=== PATIENT | male | born 1975 | race Caucasian/White ===

== ENCOUNTER 2020-11-10 10:14 | Outpatient (NON) | payer BC, SELFPAY ==
[2020-11-10 22:00] LABS: SARS-CoV-2 RNA PCR Positive
== END 2020-11-10 10:15 ==
PROVIDERS: Visit Provider Physician Assistant
DX: U07.1 COVID-19 (principal)
CPT/HCPCS: 87635; C9803; U0003

== ENCOUNTER 2021-02-06 13:47 | Outpatient (CLI) | payer BC, SELFPAY ==
--- NOTE | ~2021-02-06 | US_ITS ---
US axilla LT INDICATION: Palpable left axillary mass TECHNIQUE: Dedicated left axillary ultrasound COMPARISON: No prior studies for comparison. FINDINGS: In the area of palpable concern in the left axilla there is an enlarged lymph node measuring 4.5 x 2. 6 x 1.1 cm. There is normal fatty hilum with thin cortex. IMPRESSION: 1: Left axillary lymph node enlargement, likely reactive. Recommend follow-up ultrasound as clinicall y warranted. Reviewed, dictated and finalized at location A. IMPRESSION: 1: Left axillary lymph node enlargement, likely reactive. Recommend follow-up u ltrasound as clinically warranted.
== END 2021-02-06 13:48 | disposition home or self-care (01) ==
PROVIDERS: PCP Family Medicine; Visit Provider Family Medicine
DX: R59.0 Localized enlarged lymph nodes (principal)
CPT/HCPCS: 76882

== ENCOUNTER 2021-03-02 13:32 | Outpatient (CLI) | payer BC, SELFPAY ==
--- NOTE | ~2021-03-02 | US_ITS ---
US axilla BI 03/02/2021 14:02 Indication: Follow-up left axillary lymph nodes. Procedure: Probable bilateral axillary lumps. Comparison: Ultrasound dated 02/06/2021 Findings: Right axilla: There is an enlarged right axillary lymph node measuring 2.7 x 2.1 x 1 cm with normal f atty hilum and internal vascularity. Left axilla: Slightly decreased size of enlarged left axillary lymph node compared with prior study n ow measuring 4 x 3.2 x 1.2 cm compared with 4.5 x 2.6 x 1.1 cm on prior examination. There is normal retention of fatty hilum. Impression: 1: Bilateral axillary lymphadenopathy, in the absence of known malignancy, likely benign. Consider 6 month follow-up. If there is history of malignancy or lymphoma, correlation with ultrasound-guided bi opsy recommended. Reviewed, dictated and finalized at location A. Impression: 1: Bilateral axillary lymphadenopathy, in the absence of known malignancy, like ly benign. Consider 6 month follow-up. If there is history of malignancy or lym phoma, correlation with ultrasound-guided biopsy recommended.
== END 2021-03-02 13:33 | disposition home or self-care (01) ==
PROVIDERS: PCP Family Medicine; Visit Provider Family Medicine
DX: R59.0 Localized enlarged lymph nodes (principal)
CPT/HCPCS: 76882

== ENCOUNTER 2021-03-21 08:39 | Outpatient (CLI) | payer BC, SELFPAY ==
--- NOTE | 2021-03-21 | ECG_ITS ---
Measurements Intervals [place] Rate: 70 P: 9 RI: 126 QRS: 12 QRSD: 86 T: 45 QT: 384 QTc: 416 Interpretive Statements SINUS RHYTHM BASELINE ARTIFACT- I, III, AVF NORMAL ECG Electronically Signed On 03-21-2021 9:07:18 CDT by Justin Alonzo D.O.
[2021-03-21 09:05] LABS: Anion Gap 4 mmol/L (8-16); Blood Urea Nitrogen 15 mg/dL (9-20); Calcium 8.7 mg/dL (8.4-10.2); Carbon Dioxide 29 mmol/L (22-30); Chloride 105 mmol/L (98-107); Estimated Glomerular Filt Rate > 60; Glucose 223 mg/dL (75-110); Potassium 4.3 mmol/L (3.4-5.0); Sodium 138 mmol/L (137-145)
== END 2021-03-21 08:40 | disposition home or self-care (01) ==
PROVIDERS: PCP Family Medicine; Visit Provider Anesthesiology
DX: E11.65 Type 2 diabetes mellitus with hyperglycemia (principal)
CPT/HCPCS: 36415; 80048; 93005

== ENCOUNTER → 2021-03-24 02:03 | Outpatient (CLI) | payer BC, SELFPAY ==
[2021-03-24 19:24] LABS: SARS-CoV-2 RNA PCR Negative
== END ==
PROVIDERS: PCP Family Medicine; Visit Provider Surgery
DX: Z01.812 Encounter for preprocedural laboratory examination (principal); Z20.822 Contact with and (suspected) exposure to COVID-19
CPT/HCPCS: C9803; U0003; U0005

== ENCOUNTER 2021-03-27 02:27 | Day surgery (SDC) | payer BC, SELFPAY ==
[2021-03-16 15:14] VITALS: BMI 30.4
--- NOTE | 2021-03-26 09:43 | WPDANESEPPF ---
Anes - Initial Pre Proc Eval Procedure: Operation Date: 03/27/21 13:00 Proposed Procedures p Excisional Biopsy Of Left Axillary Lymph Node - Juan Chaidez DO Date/Time: 03/26/21 09:43 Surgeon: Juan Chaidez DO Pre Op Diagnosis: Left Lymph Node Axillary Mass Patient Data Age: 45 Gender: M Height: 1.8 m Weight: 99.09 kg Allergies Allergy/AdvReac Type Severity Reaction Status Date / Time No Known Allergies Allergy Verified 03/27/21 11:03 Home Medications Medication Instructions Recorded Confirmed Type atorvastatin 20 mg tablet 20 mg PO DAILY 03/06/21 03/27/21 History icosapent ethyl 1 gram capsule 2 g PO BID 03/06/21 03/27/21 History lisinopril 20 mg tablet 20 mg PO DAILY 03/06/21 03/27/21 History metformin 500 mg tablet 1,000 mg PO BID 03/06/21 03/27/21 History semaglutide 1 mg/dose (2 mg/1.5 1 mg SUBCUT WEEKLY 84 Days #9 ml 03/24/21 Rx mL) subcutaneous pen injector Patient hx anesthesia problems: none Family hx anesthesia problems: none PMFSH Past Medical History Medical History (Updated 03/27/21 @ 12:16 by Cain Dunbar DO) Cancer his colon cancer - 2001 Diabetes mellitus HTN (hypertension) Hyperlipidemia CM (obstructive sleep apnea) Surgical History Surgical History Hx of appendectomy Family History Family History Mother Past heart attack Hypertension Diabetes mellitus Father Hypertension Suicide Depression Grandparent Diabetes mellitus Kidney disease Other Lung cancer Other Hepatic disease Hepatitis Social History Social History Smoking status: Never smoker Alcohol intake: current Drinks per week: 6 Alcohol use details: 6 on weelends Substance use: unknown Substance use type: does not use Living arrangements: with family 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 Gender identity (if verbalized by the patient): Male Spiritual care concerns: No Anes - Eval Final PreProcedure Day of Procedure 03/26/21 09:43 Patient weight: obese Heart: regular rate and rhythm Lungs: clear to auscultation and normal air movement Airway: Mallampati scale class II Neurological: alert and oriented Last oral intake: >/= 8 hours ASA classification: III Emergent: no Anesthetic plan: proceed Anesthesia type and monitoring: general GIVS and standard monitoring Informed Consent: The patient's anesthetic plan and its attendant risks and benefits were discussed with the patient/family/POA. Questions were solicited and answers provided to the satisfaction of the patient/family/POA.
[2021-03-27 11:15] VITALS: BMI 29.4
[2021-03-27 11:16] VITALS: BP 164/103; PULSE 86; RESP 18; TEMP 36.7; O2SAT 99
[2021-03-27] MEDS: LACTATED RINGERS 1,000 ML 30 ML IV CONT (11:40)
[2021-03-27 11:44] LABS: Glucose Point of Care 140 (65-105)
--- NOTE | 2021-03-27 12:54 | WPDHPUPDATE1 ---
History and Physical Update Update Date/Time: 03/27/21 12:54 History and Physical has been reviewed, including an updated exam of the patient. There are NO changes in the patient's condition. Risks, benefits, and alternatives have been discussed and questions answered. Patient agrees to proceed with procedure.
[2021-03-27] MEDS: ceFAZolin 2 GM/D5W 50 ML 2 GM/50 ML BAG IVPB (13:07)
[2021-03-27] MEDS: LIDO 1%/EPINEPHRINE 1:100,000 50 ML VIAL 30 ML INFILTRATE (13:22)
[2021-03-27 13:44] VITALS: BP 129/81; PULSE 83; RESP 16; O2SAT 96
--- NOTE | 2021-03-27 13:47 | P.OP_ITS ---
Procedure Note - Detailed Date of procedure: 03/27/21 Pre-op diagnosis: Left axillary lymphadenopathy Post-op diagnosis: same Procedure performed: Excisional biopsy of deep left axillary lymph node Description of procedure: * Procedure as well as risks benefits and alternatives were discussed with the patient. Written consent was obtained and placed in chart prior to procedure. Patient was brought back to surgical suite. He was placed in supine position on the operating table. IV sedation was then administered by the anesthesia department. His left axillary region was prepped and draped in sterile fashion using chlorhexidine prep. Time-out was done to confirm patient and procedure. 1% lidocaine with epinephrine was infiltrated locally directly over the left axillary mass. A 4 cm incision was made directly over this area using a 15 blade scalpel. Electrocautery was used for hemostasis and for dissection down through the subcutaneous tissue. The clavipectoral fascia was then incised using electrocautery. The deeper axillary contents were then carefully inspected and the enlarged lymph node was identified. The lymph node was carefully freed up from the surrounding subcutaneous attachments using electrocautery. The blood supply to the lymph node was ligated using a 3 0 Vicryl [id number] suture. The remaining subcu attachments were then carefully freed up with electrocautery. The specimen was removed completely and sent to the lab for pathology. The wound bed was then inspected and hemostasis appeared adequate. No other abnormalities were noted. The clavipectoral fascia was then reapproximated using 3 0 Vicryl simple interrupted sutures. The skin was then approximated using 4 0 Monocryl running subcuticular suture. Exofin glue was applied on top. The patient was then awakened from anesthesia and transferred to recovery. Anesthesia: MAC and local (1% lidocaine with epinephrine) Surgeon: Juan Chaidez DO Estimated blood loss (mL): 5 Pathology: yes (Left axillary lymph node) Complications: No immediate complications Condition: stable Disposition: same day Findings: This is a 45-year-old man who presented with a palpable mass in his left axillary region. This had been present for more than 1 wound. He originally had an ultrasound the left axilla and breast region. A 4 cm lymph node was identified within the axilla. A follow-up ultrasound showed that the lymph node had slightly increased in size. Discussions were made with the patient about treatment options and decision was made to proceed with excisional biopsy of left axillary lymph node. Excisional biopsy of the deep left axillary lymph node was performed. A 4 cm a large lymph node was identified within this region, but no other significant a bnormalities were noted. The lymph node did appear slightly pigmented which may be related to his previous tattoo on his left shoulder. No other abnormalities were noted. The lymph node was excised intact and sent to the lab for pathology.
[2021-03-27 14:10] VITALS: BP 141/82; PULSE 70; RESP 16; O2SAT 98
[2021-03-27 14:20] LABS: Glucose Point of Care 139 (65-105)
[2021-03-27 14:40] VITALS: BP 137/88; PULSE 64; RESP 16
== END 2021-03-27 14:47 | disposition home or self-care (01) ==
PROVIDERS: PCP Family Medicine; Visit Provider Surgery
PROC: (CPT 38525; principal; 2021-03-27 13:00)
DX: R59.0 Localized enlarged lymph nodes (principal); Z79.84 Long term (current) use of oral hypoglycemic drugs; G47.33 Obstructive sleep apnea (adult) (pediatric); E11.9 Type 2 diabetes mellitus without complications; E78.5 Hyperlipidemia, unspecified; Z85.038 Personal history of other malignant neoplasm of large intestine; E66.9 Obesity, unspecified; Z68.29 Body mass index [BMI] 29.0-29.9, adult; I10 Essential (primary) hypertension
CPT/HCPCS: 38525; 82948; 88184; 88305; 88333; A9270; C9803; J0690; J2250; J2405; J2704; J3010; J7120; U0003; U0005

== ENCOUNTER → 2022-04-23 11:28 | Outpatient (CLI) | payer BC, SELFPAY ==
--- NOTE | ~2022-04-23 | CT_ITS ---
EXAMINATION: CT abdomen wo con DATE: 04/23/2022 11:47 INDICATION: Abdominal pain TECHNIQUE: Computed tomography (CT) of the abdomen was performed without intravenous contrast. The do se-length product (DLP) was 666.91 mGy-cm. Automated exposure control and iterative reconstruction te nique were employed. COMPARISON: 02/12/2009 FINDINGS: The lung bases are clear. The heart size is normal. The liver, spleen, pancreas, and adrena l glands are normal. The gallbladder is contracted but normal in appearance. There is a 6 mm hemorrha gic cyst of the left kidney. There is a 10 mm cyst of the right kidney. There are no pathologically e nlarged abdominal lymph nodes. The appendix is surgically absent. There is no free intraperitoneal ga s or evidence of bowel obstruction. IMPRESSION: 1. No CT correlate for the patient's symptoms. Reviewed, dictated and finalized at location F.
== END ==
PROVIDERS: PCP Physician Assistant; Visit Provider Physician Assistant
DX: R10.84 Generalized abdominal pain (principal); N28.1 Cyst of kidney, acquired
CPT/HCPCS: 74150